=== PATIENT | female | born 1965 | race Caucasian/White ===

== ENCOUNTER → 2022-07-14 | Outpatient (CLI) | payer MEDICAID ==
--- NOTE | 2022-07-14 12:08 | P.SLEEP ---
History of Present Illness DATE: 07/14/2022 CONSULTATION/NEW PATIENT EVALUATION HISTORY OF PRESENT ILLNESS/SLEEP-WAKE EVALUATION: 57-year-old lady had been evaluated in the sleep center for possible obstructive sleep apnea hypopnea syndrome. 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 On days off she goes to bed in different time. FALLING ASLEEP: No problems with falling asleep, no TV in bedroom. DURING SLEEP: Patient usually sleeps on the side position with loud snoring and witnessed episodes of stop breathing during the sleep. Positive history of episodes of palpitations and restless leg symptoms. Patient wakes up from sleep 2 times with one episode of nocturia. No history of hypnogogical hallucinations, sleep paralysis, or cataplexy. DURING THE DAY/WAKE STATE: After sleep patient wake up tired. [place] sleepiness scale increased to 11. Patient may take 1 along nap at afternoon time. PAST MEDICAL HISTORY: Hypertension, coronary artery disease, RBBB, diabetes mellitus, breast cancer, hyperlipidemia . PAST SURGICAL HISTORY: Breast lumpectomy and then bilateral mastectomy, stents insertion to coronary arteries. MEDICATIONS: Rosuvastatin 20 mg once a day, isosorbide 30 mg once a day, losartan 100 mg once a day, metoprolol 50 mg once a day, clopidogrel 75 mg once a day, metformin 500 mg 3 times a day, aspirin 81 mg once a day, nitroglycerin as needed. SOCIAL HISTORY: Positive for smoking for more than 40 years about half pack a day, alcohol consumption occasional. FAMILY HISTORY: Sleep apnea, narcolepsy, during the sleep. REVIEW OF SYSTEMS: Loud snoring, daytime sleepiness. No fevers. No double vision. No recent chest pain. No shortness of breath. No abdominal pain. No bleeding episodes. No blood in urine. No seizure episodes. PHYSICAL EXAMINATION: GENERAL: A pleasant patient without any distress. VITAL SIGNS: BP 156/75 , HR 58 , RR 12 , weight 220.4 pounds, height 5 foot 6 inches, body mass index 35.5 . HEENT: PERRLA, EOMI. Evaluation of oropharynx showed tongue protrudes midline, low position of soft palate Mallampati 3. NECK: Supple. No JVD. Thyroid is not palpable. 17 inches in circumference. LUNGS: Clear to percussion and to auscultation. Good air exchange. No wheezing or rhonchi. HEART: S1, S2 regular. No murmurs, gallops or rubs. ABDOMEN: Soft and nontender. Bowel sounds are present. No organomegaly appreciated. Slightly obese EXTREMITIES: No clubbing or cyanosis. SUPERVISOR PRODUCT INSPECTION: Awake, alert, and oriented x3. Cranial nerves 2 to 7 intact. There is no fasciculation or atrophy noted. No focal deficits observed. ASSESSMENT: 1. Loud snoring, witnessed episodes of stop breathing during the sleep, low position of soft palate Mallampati 3, wide neck 17 inches in circumference, sleepiness [place] Sleepiness Scale increased to 11. Obstructive sleep apnea- hypopnea syndrome. 2. Obesity, BMI 35.5. 3. Coronary artery disease, status post stents insertions in June 2022. 4. Hypertension. 5 history of left breast cancer, status post lumpectomy and later bilateral mastectomy. 6 . Diabetes mellitus. 7. History of RBBB. 8. Hyperlipidemia. 9 . Restless leg symptoms. 10. Smokier for about 40 years. 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 PLAN: 1. Polysomnography for evaluation of patient's breathing during sleep and also to check for any movements during the sleep, positive history of restless leg symptoms. 2. CPAP/BiPAP titration if sleep study confirms obstructive sleep apnea- hypopnea syndrome. 3. Preferable position during sleep on the side. 4. No driving if patient feels any sleepiness. Patient is aware of civil and criminal liability for unsafe driving. 5. Sleep hygiene with regular sleep time for at least 7.5-8 hours. 6. Watching and losing weight. 7. Smoking cessation program Thank you very much for referring this patient for consultation. Sincerely, Gen Smith MD, PhD, FAASM. Diplomat of [place] [employer], Sleep Medicine Board by [place] [employer] [place] [employer] Mold Parter [facility] [place] Sleep Note - Sleep Note Sleep Note: Temperature: Pulse Rate: Respiratory Rate: Blood Pressure: SpO2: Height: Weight: BMI: Neck Circumference:
== END ==
LOC: SLEEP 09:58
PROVIDERS: ATTEND Internal Medicine
DX: G47.33 Obstructive sleep apnea (adult) (pediatric) (principal); Z98.890 Other specified postprocedural states; I10 Essential (primary) hypertension; Z85.3 Personal history of malignant neoplasm of breast; E11.9 Type 2 diabetes mellitus without complications; E78.5 Hyperlipidemia, unspecified; G25.81 Restless legs syndrome; Z87.891 Personal history of nicotine dependence; Z99.89 Dependence on other enabling machines and devices; I45.10 Unspecified right bundle-branch block
CPT/HCPCS: 99211

== ENCOUNTER 2022-10-20 18:59 | Outpatient (CLI) | payer MEDICAID ==
--- NOTE | 2022-11-02 14:07 | P.PCN ---
Description of Procedure: CLINICAL: Titration with positive air pressure has been done for correction of respiratory abnormalities during sleep. DESCRIPTION OF PROCEDURE: The standard montage for clinical polysomnography included the electroencephalogram, the electrocardiogram, the mentalis surface electromyography and Lead II cardiography. The respiratory battery consisted of measurements of nasal /buccal air flow, pressure transducer measurements from the nose, thoracic and /or abdominal effort and intercostal surface electromyography. Video monitoring has been done to check for any parasomnia events. Nocturnal oxyhemoglobin saturations were obtained by finger oximetry. Step-marks titration with positive airway pressure was utilized to control respiratory events. Raw data of sleep recording has been reviewed and is adequate. RESULTS: Sleep efficiency was normal 90.9 %. Latency to sleep onset was normal 14.5 minutes.]. Sleep architecture showed stage N1 was short 2.1 %, Delta sleep was in high range 34.9 %, REM sleep was normal 20.1 %. Heart rate was minimum 51 BPM, maximum 58 BPM, average 54 BPM. EMG showed 0 periodic limb movements per hour . PAP titration have been done with CPAP up to the pressure 12 cm H2O. The best results were at the pressure 12 cm H2O. Apnea hypopnea index reduced to 0. IMPRESSION: 1. Obstructive sleep apnea hypopnea syndrome on controle with PAP treatment at the pressure 12 cm of water. 2. No periodic limb movements have been documented. Please see other impressions from consultation. PLAN: 1. The patient will have treatment with positive air pressure equipment with the level of pressure AutoPAP 8-13 cm H2O and should use it every night for the whole night. 2. Watching weight. 3. Sleep hygiene with regular time in bed for at least 8 hours. 4. No driving if feeling any sleepiness. 5. I will see the patient for follow up visit to explain the results of the test, recommendations, check compliance with treatment and make any necessary adjustment related to mask fitting, pressure and humidification. Thank you very much for allowing me to participate in the management of your patient. Sincerely, Gen Smith MD, PhD, FAASM Diplomat of [place] [employer] Sleep Medicine Board of [place] [employer] Restrictive Preparation Operator of [facility] [place]
== END 2022-10-21 23:59 ==
LOC: 3 N SLEEP 18:59 → EDSTATUS 19:20 → 3 N SLEEP 10-21 05:50
PROVIDERS: ATTEND Internal Medicine
DX: G47.33 Obstructive sleep apnea (adult) (pediatric) (principal)
CPT/HCPCS: 95811

== ENCOUNTER → 2023-01-18 | Outpatient (CLI) | payer MEDICAID ==
--- NOTE | 2023-01-18 17:18 | P.PN ---
Subjective DATE: 01/18/2023 FOLLOW UP VISIT. Patient with obstructive sleep apnea hypopnea syndrome return to sleep center for follow-up visit. This is first visit after patient received CPAP equipment. I explained results of sleep studies to the patient in details. Patient is using PAP equipment every night for the whole night, getting PAP supplies in time. Patient feels significant improvements while on treatment with CPAP with relationship to sleep quality and feeling during the day. The patient does not have significant problems with the mask, PAP unit and humidification. [place] sleepiness scale is 3. I checked information from PAP unit. PAP unit pressure 8-13 cm of water, average 12.9 cm H2O. Usage is 100% and 80 % for more then 4 hours, average 6 hours per night. Leak is 17.0 l/m, which is in acceptable range. Apnea Hypopnea Index is 2.1, which is normal. MEDICATIONS:1. Metoprolol 50 mg once a day, 2. Clopidogrel 75 mg once a day, 3. Metformin 500 mg 3 times a day 4. Rosuvastatin 20 mg once a day 5. Isosorbide 30 mg once a day 6. Losartan 100 mg once a day 7. Aspirin 81 mg once a day During physical exam: GENERAL: A pleasant patient without any distress. VITAL SIGNS: BP 123/79, HR 57, RR 18, weight 215.4, temperature 98.2, oxygen saturation at room air 95 % . HEENT: PERRLA, EOMI.low position of soft palate, Mallapati 3. NECK: Supple. No JVD. LUNGS: Clear to percussion and to auscultation. Good air exchange. No wheezing or rhonchi. HEART: S1, S2 regular. ABDOMEN: Soft and nontender. Slightly obese EXTREMITIES: No clubbing or cyanosis. GEAR MILLING MACHINE SET UP OPERATOR: Awake, alert, and oriented x3. No focal deficit. Impressions: 1. Obstructive sleep apnea-hypopnea syndrome. Patient demonstrated great compliance with treatment, benefiting from treatment. 2. Mild obesity, patient lost 5 pounds since previous visit. 3. Coronary artery disease, status post stent insertion in June 2022. 4. Hypertension. 5. Diabetes mellitus. 6. History of left breast cancer, status post lumpectomy and later bilateral mastectomy. 7. History of RBBB. 8. Hyperlipidemia. Plan: 1. Continue using PAP equipment every night for the whole night. 2. To change air filter at least 1-2 times per month. 3. PAP unit should stay lower then position of the head. 4. Advised patient to remove all remaining water from humidifier canister daily and make it dry after each usage. Refill canister with fresh distilled water before each usage. 5. Sleep hygiene with regular time in bed for at least 8 hours. 6. Precautions related to driving. No driving if feel any sleepiness. 7. I will maintain prescription for PAP supplies including mask, tube, filters. 8. Follow up visit in 6 months or earlier if patient has any problems. 9. Watching and continue losing weight. Thank you very much for allowing me to participate in the management of your patient. Gen Smith MD, PhD, FAASM. Diplomat of [place] [employer] Medicine, Sleep Medicine Board by [place] [employer] Wrapper Leaf Inspector of [facility] [place]
== END ==
LOC: 3 N SLEEP 16:20
PROVIDERS: ATTEND Internal Medicine
DX: G47.33 Obstructive sleep apnea (adult) (pediatric) (principal); E66.9 Obesity, unspecified; I10 Essential (primary) hypertension; E11.9 Type 2 diabetes mellitus without complications; E78.5 Hyperlipidemia, unspecified; I25.10 Atherosclerotic heart disease of native coronary artery without angina pectoris; I45.10 Unspecified right bundle-branch block; Z79.02 Long term (current) use of antithrombotics/antiplatelets; Z79.84 Long term (current) use of oral hypoglycemic drugs; Z79.899 Other long term (current) drug therapy; Z85.3 Personal history of malignant neoplasm of breast; Z90.13 Acquired absence of bilateral breasts and nipples; Z95.5 Presence of coronary angioplasty implant and graft; Z99.89 Dependence on other enabling machines and devices
CPT/HCPCS: 99212

== ENCOUNTER → 2023-08-09 | Outpatient (CLI) | payer MEDICAID ==
[2023-08-09 16:54] VITALS: BP 106/69; PULSE 63; RESP 16; TEMP 98.2
--- NOTE | 2023-08-09 17:01 | P.PN ---
Subjective DATE: 08/09/2023 FOLLOW UP VISIT. Patient with obstructive sleep apnea hypopnea syndrome return to sleep center for follow-up visit. Information from previous visit have been reviewed. Patient is using PAP equipment every night for the whole night, getting PAP supplies in time. The patient does not have significant problems with the mask, PAP unit and humidification. [place] sleepiness scale is 7, which is in normal range. I checked information from PAP unit. PAP unit pressure 5-13, average 13.0 cm H2O. Usage is 100% for more then 4 hours, average 6.5 hours per night. Leak is 25.8 l/m, which is in acceptable range. Apnea Hypopnea Index is 1.3, which is normal. MEDICATIONS:1. Metformin extended release 750 mg once a day 2. Losartan 100 mg once a day 3. Isosorbide 30 mg once a day 4. Rosuvastatin 20 mg once a day 5. Metoprolol 50 mg once a day 6. Hydrochlorothiazide 25 mg once a day 7. Clopidogrel 75 mg once a day 8. Aspirin 81 mg once a day During physical exam: GENERAL: A pleasant patient without any distress. VITAL SIGNS: Please see below, weight 221 pounds. HEENT: PERRLA, EOMI.low position of soft palate, Mallapati 3 . NECK: Supple. No JVD. LUNGS: Clear to percussion and to auscultation. Good air exchange. No wheezing or rhonchi. HEART: S1, S2 regular. ABDOMEN: Soft and nontender.[] EXTREMITIES: No clubbing or cyanosis. COMBINATION WELDER APPRENTICE: Awake, alert, and oriented x3. No focal deficit. Impressions: 1. Obstructive sleep apnea-hypopnea syndrome. Patient demonstrated great compliance with treatment, benefiting from treatment. 2. Mild obesity, patient increased weight on 6 pounds comparing with previous visit. 3. Hypertension. 4. Diabetes mellitus. 5. Coronary artery disease, status post stent insertion in 2022. 6. History of RBBB. 7. Hyperlipidemia. 8. History of left breast cancer, status post lumpectomy and later bilateral mastectomy. Plan: 1. Continue using PAP equipment every night for the whole night. 2. To change air filter at least 1-2 times per month. 3. PAP unit should stay lower then position of the head. 4. Advised patient to remove all remaining water from humidifier canister daily and make it dry after each usage. Refill canister with fresh distilled water before each usage. 5. Sleep hygiene with regular time in bed for at least 8 hours. 6. Precautions related to driving. No driving if feel any sleepiness. 7. I will maintain prescription for PAP supplies including mask, tube, filters. 8. Watching and losing weight. 9. Follow up visit in 6 months or earlier if patient has any problems. Thank you very much for allowing me to participate in the management of your patient. Gen Smith MD, PhD, FAASM. Diplomat of [place] [employer] Medicine, Sleep Medicine Board by [place] [employer] Band Sawyer [facility] [place] Objective - Vital Signs Vital signs: Vital Signs Temp 98.2 F 08/09/23 16:37 Pulse 63 08/09/23 16:37 Resp 16 08/09/23 16:37 BP 106/69 08/09/23 16:37 Pulse Ox 94 L 08/09/23 16:37 FiO2
== END ==
LOC: 3 N SLEEP 16:21
PROVIDERS: ATTEND Internal Medicine
DX: G47.33 Obstructive sleep apnea (adult) (pediatric) (principal); E66.9 Obesity, unspecified; I10 Essential (primary) hypertension; E11.9 Type 2 diabetes mellitus without complications; I25.10 Atherosclerotic heart disease of native coronary artery without angina pectoris; E78.5 Hyperlipidemia, unspecified; Z85.3 Personal history of malignant neoplasm of breast; Z90.13 Acquired absence of bilateral breasts and nipples; Z79.84 Long term (current) use of oral hypoglycemic drugs; Z79.02 Long term (current) use of antithrombotics/antiplatelets; Z79.899 Other long term (current) drug therapy; Z95.5 Presence of coronary angioplasty implant and graft; Z98.890 Other specified postprocedural states; Z99.89 Dependence on other enabling machines and devices; Z91.048 Other nonmedicinal substance allergy status
CPT/HCPCS: 99212

== ENCOUNTER → 2024-03-28 | Outpatient (CLI) | payer MEDICAID ==
[2024-03-28 17:15] VITALS: BP 124/77; PULSE 56; RESP 18; TEMP 97.3
--- NOTE | 2024-03-28 17:36 | P.PROGSL ---
Subjective DATE: 03/28/2024 FOLLOW UP VISIT. Patient with obstructive sleep apnea hypopnea syndrome return to sleep center for follow-up visit. Information from previous visit have been reviewed. Patient is using PAP equipment every night for the whole night, getting PAP supplies in time. Sometimes patient has awakenings from sleep more than before. The patient does not have significant problems with the mask, PAP unit and humidification. [place] sleepiness scale is 7, which is normal. I checked information from PAP unit. PAP unit pressure 8-13, average 13 cm H2O. Usage is 100% for more then 4 hours, average 6.6 hours per night. Leak is slightly increased to 32 l/m. Apnea Hypopnea Index is 1.4, which is normal, but last night it was slightly increased to 6.4. MEDICATIONS have been reviewed, please see below. During physical exam: GENERAL: A pleasant patient without any distress. VITAL SIGNS: Please see below, weight is 215 lbs. HEENT: PERRLA, EOMI.low position of soft palate, Mallapati 3. NECK: Supple. No JVD. LUNGS: Clear to percussion and to auscultation. Good air exchange. No wheezing or rhonchi. HEART: S1, S2 regular. ABDOMEN: Soft and nontender.[] EXTREMITIES: No clubbing or cyanosis. JOB TRAINING SUPERVISOR: Awake, alert, and oriented x3. No focal deficit. Impressions: 1. Obstructive sleep apnea-hypopnea syndrome. Patient demonstrated great compliance with treatment, benefiting from treatment. 2. Mild obesity, BMI 35.7, patient lost 6 pounds comparing with previous visit. 3. Hypertension. 4. Diabetes mellitus. 5. Coronary artery disease, status post stent insertion 2022. 6. History of RBBB. 7. History of left breast cancer, status post lumpectomy and later bilateral mastectomy. 8. Hyperlipidemia. I slightly increased pressure in CPAP unit to the range 8-15 cm of water. Plan: 1. Continue using PAP equipment every night for the whole night. 2. Sleep hygiene with regular time in bed for at least 7.5-8 hours 3. PAP unit should stay lower then position of the head. 4. Advised patient to remove all remaining water from humidifier canister daily and make it dry after each usage. Refill canister with fresh distilled water before each usage. 5. Watching and losing weight. 6. Precautions related to driving. No driving if feel any sleepiness. 7. I will maintain prescription for PAP supplies including mask, tube, filters. 8. Follow up visit in 8 months or earlier if patient has any problems. Thank you very much for allowing me to participate in the management of your pat ient. Gen Smith MD, PhD, FAASM. Diplomat of [place] [employer] Medicine, Sleep Medicine Board by [place] [employer] Automobile Body Worker of [facility] [place] Objective - Vital Signs Vital Signs: Vital Signs Temp 97.3 F L 03/28/24 17:13 Pulse 56 L 03/28/24 17:13 Resp 18 03/28/24 17:13 BP 124/77 03/28/24 17:13 Pulse Ox 97 03/28/24 17:13 FiO2 Intake & Output 03/27/24 03/28/24 03/28/24 18:59 06:59 18:59 Weight 97.522 kg Home Medications: Home Medications Medication Instructions Recorded Confirmed Type Aspirin [Adult Low Dose Aspirin EC] 81 mg PO 08/09/23 08/09/23 History Clopidogrel [Plavix] 75 mg PO DAILY 08/09/23 08/09/23 History Isosorbide Dinitrate 30 mg PO 08/09/23 History Losartan Potassium [Cozaar] 100 mg PO 08/09/23 History Metoprolol Succinate [Toprol XL] 50 mg PO DAILY 08/09/23 08/09/23 History Rosuvastatin [Crestor] 20 mg PO 08/09/23 History hydroCHLOROthiazide 25 mg PO 08/09/23 History metFORMIN HCL ER [Glucophage XR] 500 mg PO DAILY 08/09/23 08/09/23 History
== END ==
LOC: 3 N SLEEP 16:15
PROVIDERS: ATTEND Internal Medicine
DX: G47.33 Obstructive sleep apnea (adult) (pediatric) (principal); E66.9 Obesity, unspecified; I10 Essential (primary) hypertension; E11.9 Type 2 diabetes mellitus without complications; I25.10 Atherosclerotic heart disease of native coronary artery without angina pectoris; E78.5 Hyperlipidemia, unspecified; Z85.3 Personal history of malignant neoplasm of breast; Z98.890 Other specified postprocedural states; Z68.35 Body mass index [BMI] 35.0-35.9, adult; Z90.13 Acquired absence of bilateral breasts and nipples; Z99.89 Dependence on other enabling machines and devices; Z95.5 Presence of coronary angioplasty implant and graft; Z91.048 Other nonmedicinal substance allergy status; Z79.84 Long term (current) use of oral hypoglycemic drugs; Z79.02 Long term (current) use of antithrombotics/antiplatelets; Z79.899 Other long term (current) drug therapy
CPT/HCPCS: 99212